=== PATIENT | female | born 1985 | race Caucasian/White ===

== ENCOUNTER 2016-07-06 12:04 | Emergency (ER) | payer MEDICAID | END 2016-07-06 14:10 | disposition left against medical advice (07) | LOC: ER 12:04 | DX: Z53.20 Procedure and treatment not carried out because of patient's decision for unspecified reasons (principal) ==

== ENCOUNTER 2016-07-07 08:51 | Emergency (ER) | payer MEDICAID ==
[2016-07-07] MEDS ORDERED: ONDANSETRON HCL IV 4 MG/2 ML VIAL IVP ONE (09:31)
[2016-07-07] MEDS ORDERED: HYDROMORPHONE HCL 1 MG/ML CPJ IVP ONE (09:31)
[2016-07-07 09:58] LABS: BASO % 0.5 % (0-6); EOS % 3.5 % (0-6); GRAN % 49.4 % (47-80); HEMATOCRIT 38.6 % (35.0-47.0); HEMOGLOBIN 13.3 gm/dl (11.6-16.0); LYMPH % 41.2 % (16-45); MEAN CELL VOLUME 92.6 fl (81-97); MEAN CORPUSCULAR HEMOGLOBIN 31.9 pg (27-33); MEAN CORPUSCULAR HGB CONC 34.5 g/dl (32-36); MEAN PLATELET VOLUME 9.7 fl (7.4-10.4); MONO % 5.4 % (0-9); PLATELET COUNT 231 K/uL (130-400); RED BLOOD COUNT 4.17 M/uL (3.80-5.40); RED CELL DISTRIBUTION WIDTH 13.3 % (11.5-14.5); WHITE BLOOD COUNT W/O DIFF 7.9 K/uL (4.2-12.2)
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
[2016-07-07 10:05] LABS: ALB/GLOB RATIO 1.4 (1.1-1.8); ALBUMIN 3.9 gm/dL (3.5-5.0); ALKALINE PHOSPHATASE 42 U/L (38-126); ALT/SGPT 38 U/L (9-52); AMYLASE 64 U/L (30-110); ANION GAP 7.2 (7-16); AST/SGOT 19 U/L (14-36); BILIRUBIN,TOTAL 0.29 mg/dL (0.2-1.3); BLOOD UREA NITROGEN 7 mg/dL (7-17); CARBON DIOXIDE 24.8 mmol/L (22-30); CREATININE 0.7 mg/dL (0.52-1.04); EST GLOMERULAR FILTRATION RATE > 60 ml/min; GLUCOSE,RANDOM 93 mg/dL (70-110); LIPASE 111 U/L (23-300); TOTAL PROTEIN 6.6 gm/dL (6.3-8.2)
[2016-07-07 11:09] LABS: URINE APPEARANCE CLEAR; URINE BILIRUBIN NEGATIVE (NEGATIVE); URINE BLOOD NEGATIVE (NEGATIVE); URINE COLOR YELLOW; URINE GLUCOSE (UA) NEGATIVE (NEGATIVE); URINE KETONE NEGATIVE (NEGATIVE); URINE LEUKOCYTE ESTERASE NEGATIVE (NEGATIVE); URINE NITRITE NEGATIVE (NEGATIVE); URINE PROTEIN NEGATIVE (NEGATIVE); URINE UROBILINOGEN 0.2 E.U./dL (0.20 - 1.00)
[2016-07-07 11:11] LABS: HCG,QUALITATIVE URINE NEGATIVE (NEGATIVE)
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
== END 2016-07-07 12:24 | disposition home or self-care (01) ==
LOC: ER 08:51
DX: S16.1XXA Strain of muscle, fascia and tendon at neck level, initial encounter (principal); S20.219A Contusion of unspecified front wall of thorax, initial encounter; R51 Headache; M54.5 Low back pain; R10.13 Epigastric pain; R06.00 Dyspnea, unspecified; V49.40XA Driver injured in collision with unspecified motor vehicles in traffic accident, initial encounter
CPT/HCPCS: 82150; 83690; 84484; 80053; 81003; 81025; 85027; 72125; 71260; 70450; 74177; Q9967; J2405; J1170; 96374; 96375; 99284

== ENCOUNTER 2017-02-21 15:21 | Emergency (ER) | payer MEDICAID ==
[2017-02-21] MEDS ORDERED: HYDROMORPHONE HCL 1MG/ML **SYRINGE IVP ONE (16:03)
[2017-02-21] MEDS ORDERED: ONDANSETRON HCL IV 4 MG/2 ML VIAL IVP ONE (16:10)
[2017-02-21 16:56] LABS: BASO % 0.1 % (0-6); EOS % 2.1 % (0-6); GRAN % 63.2 % (47-80); HEMATOCRIT 40.2 % (35.0-47.0); HEMOGLOBIN 14.6 gm/dl (11.6-16.0); LYMPH % 29.2 % (16-45); MEAN CELL VOLUME 92.2 fl (81-97); MEAN CORPUSCULAR HEMOGLOBIN 33.5 pg (27-33); MEAN CORPUSCULAR HGB CONC 36.3 g/dl (32-36); MEAN PLATELET VOLUME 9.8 fl (7.4-10.4); MONO % 5.4 % (0-9); PLATELET COUNT 225 K/uL (130-400); RED BLOOD COUNT 4.36 M/uL (3.80-5.40); RED CELL DISTRIBUTION WIDTH 12.6 % (11.5-14.5); WHITE BLOOD COUNT W/O DIFF 9.7 K/uL (4.2-12.2)
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
[2017-02-21] MEDS ORDERED: CLINDAMYCIN 600MG/4ML VIAL 600 MG in 0.9 % SODIUM CHLORIDE 100ML 100 ML IV ONE (17:41)
[2017-02-21] MEDS ORDERED: KETOROLAC 30 MG/ML VIAL IVP ONE (17:52)
--- NOTE | 2017-02-23 10:48 | CT SCAN REPORT ---
EXAM: CT OF THE PELVIS WITHOUT CONTRAST HISTORY: VAGINAL CYST. TECHNIQUE: Sequential axial images were obtained from the iliac crest through the ischiorectal fossa without intravenous contrast administration. Sagittal and coronal reformatted images were performed. FINDINGS: There is a 2.3 x 2.1 cm cystic lesion in the left vaginal wall. This is likely client care representative of Bartholin gland cyst. The uterus and adnexal structures appear normal. The bowel appears normal. The osseous structures appear normal. The urinary bladder appears normal. IMPRESSION: 2.3 X 2.1 CM CYSTIC LESION IN THE LEFT SIDE OF THE VAGINAL WALL. 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 JOB NUMBER: [id number] [facility]
== END 2017-02-21 18:37 | disposition home or self-care (01) ==
LOC: ER 15:21
DX: N75.0 Cyst of Bartholin's gland (principal)
CPT/HCPCS: 99284 ×2; 96374; 96375; 85025; 72192; J1885; J2405; J1170

== ENCOUNTER 2018-01-31 11:08 | Emergency (ER) | payer MEDICAID ==
[2018-01-31] MEDS: 0.9 % SODIUM CHLORIDE 1,000 ML BAG IV ONE (11:55)
[2018-01-31] MEDS: ONDANSETRON HCL IV 4 MG/2 ML VIAL IV ONE (11:55)
--- NOTE | 2018-01-31 11:56 | Emergency Department Record ---
History of Present Illness - General Chief complaint: Nausea, Vomiting, Diarrhea Stated complaint: VOMITING Time Seen by Provider: 01/31/18 11:23 Source: Patient, RN notes reviewed Mode of Arrival: Ambulatory - History of Present Illness Initial comments: patient states 5 days of nausea and vomiting and today she made herself throw up and she ate crackers and it didn't help. She was feeling better 3 days ago and she worked yesterday and she had diarrhea and she is cramping because she started her menses. MD complaint: Diarrhea, Nausea, Vomiting Onset/Timin -: Days(s) Description of Vomiting: Bilious Description of Diarrhea: Green Radiation: None Severity: Mild Quality: Aching Improves with: None Worsens with: None Associated Symptoms: Loss of appetite, Nausea/vomiting - Related Data Previous Rx's Medication Instructions Recorded Acyclovir [Zovirax] 1 apply TP 5XD #15 gm 01/31/18 Allergies Allergy/AdvReac Type Severity Reaction Status Date / Time No Known Drug Allergies Allergy Verified 01/31/18 11:39 Travel Screening - Travel/Exposure Within Last 30 Days Have you traveled within the last 30 days?: No - Travel/Exposure Within Last Year Have you traveled outside the [place] in the last year?: No - Additonal Travel Details Have you been exposed to anyone with a communicable illness?: No - Travel Symptoms Symptom Screening: None Review of Systems Reviewed: No additional complaints except as noted below Constitutional: Reports: As per HPI. Denies: Chills, Fever, Malaise, Night sweats, Weakness, Weight change Eyes: Reports: As per HPI. Denies: Eye discharge, Eye pain, Photophobia, Vision change ENT: Reports: As per HPI. Denies: Congestion, Dental pain, Ear pain, Epistaxis , Hearing loss, Throat pain Respiratory: Reports: As per HPI. Denies: Cough, Dyspnea, Hemoptysis, Stridor, Wheezes Cardiovascular: Reports: As per HPI. Denies: Arrhythmia, Chest pain, Dyspnea on exertion, Edema, Murmurs, Orthopnea, Palpitations, Paroxysmal nocturnal dyspnea, Rheumatic Fever, Syncope Endocrine: Reports: As per HPI. Denies: Fatigue, Heat or cold intolerance, Polydipsia, Polyuria Gastrointestinal: Reports: As per HPI. Denies: Abdominal pain, Constipation, Diarrhea, Hematemesis, Hematochezia, Melena, Nausea, Vomiting Genitourinary: Reports: As per HPI. Denies: Abnormal menses, Discharge, Dyspareunia, Dysuria, Frequency, Hematuria, Incontinence, Retention, Urgency Musculoskeletal: Reports: As per HPI. Denies: Arthralgia, Back pain, Gout, Joint swelling, Myalgia, Neck pain Skin: Reports: As per HPI. Denies: Bruising, Change in color, Change in hair/ nails, Lesions, Pruritus, Rash Neurological: Reports: As per HPI. Denies: Abnormal gait, Confusion, Headache, Numbness, Paresthesias, Seizure, Tingling, Tremors, Vertigo, Weakness Psychiatric: Reports: As per HPI. Denies: Anxiety, Auditory hallucinations, Depression, Homicidal thoughts, Suicidal thoughts, Visual hallucinations Hematological/Lymphatic: Reports: As per HPI. Denies: Anemia, Blood Clots, Easy bleeding, Easy bruising, Swollen glands Past Medical History - SOCIAL HISTORY Smoking Status: Current every day smoker Alcohol Use: None Drug Use: Heavy Drug Use Detail:: Marijuana - RESPIRATORY Hx Respiratory Disorders: Yes Hx Asthma: Yes - CARDIOVASCULAR Hx Cardio Disorders: No - NEURO Hx Neuro Disorders: Yes Hx Headaches: Yes Comment:: brain bleed 2009 - GI Hx GI Disorders: No - Hx Genitourinary Disorders: No - ENDOCRINE Hx Endocrine Disorders: No Hx Diabetes: No Hx Thyroid Disease: No - MUSCULOSKELETAL Hx Musculoskeletal Disorders: Yes Hx Back Injury: Yes - PSYCH Hx Psych Problems: Yes Hx Anxiety: Yes Hx Depression: Yes Hx Suicide Attempt: Yes - HEMATOLOGY/ONCOLOGY Hx Hematology/Oncology Disorders: No Family Medical History Any Significant Family History?: No Hx Alcohol Use: Grandparents Hx Heart Disease: Grandparents Hx HTN: Grandparents Hx Stroke: Grandparents Physical Exam - General General Appearance: Alert, Oriented x3, Cooperative, No acute distress - Head Head exam: Normal inspection - Eye Eye exam: Normal appearance, PERRL Pupils: Normal accommodation - ENT ENT exam: Normal exam, Mucous membranes moist, Normal external ear exam, Normal orophraynx, TM's normal bilaterally Ear exam: Normal external inspection. negative: External canal tenderness Nasal Exam: Normal inspection. negative: Discharge, Sinus tenderness Mouth exam: Normal external inspection, Tongue normal Teeth exam: Normal inspection. negative: Dental caries Throat exam: Normal inspection. negative: Tonsillar erythema, Tonsillar exudate - Neck Neck exam: Normal inspection, Full ROM. negative: Tenderness - Respiratory Respiratory exam: Normal lung sounds bilaterally. negative: Respiratory distress - Cardiovascular Cardiovascular Exam: Regular rate, Normal rhythm, Normal heart sounds - GI/Abdominal GI/Abdominal exam: Soft, Normal bowel sounds. negative: Tenderness - Rectal Rectal exam: Deferred - exam: Deferred - Extremities Extremities exam: Normal inspection, Full ROM, Normal capillary refill. negative: Tenderness - Back Back exam: Reports: Normal inspection, Full ROM. Denies: Muscle spasm, Rash noted, Tenderness - Neurological Neurological exam: Alert, Normal gait, Oriented X3, Reflexes normal - Psychiatric Psychiatric exam: Normal affect, Normal mood - Skin Skin exam: Dry, Intact, Normal color, Warm Course Vital Signs 01/31/18 11:27 Temperature 98.3 F Pulse Rate 94 H Respiratory 16 Rate Blood Pressure 131/79 Pulse Ox 98 Medical Decision Making - Data Complexity MDM Data: Labs Ordered and/or Reviewed - Lab Data Result diagrams: 01/31/18 11:50 01/31/18 11:50 Disposition Clinical Impression: Gastroenteritis, Cracked lips Disposition: Home, Self-Care Condition: (1) Good Instructions: Gastroenteritis (ED), Acute Nausea and Vomiting (ED) Additional Instructions: follow up with family in one week clear liquids for 12 hours than a bland diet Prescriptions: Acyclovir [Zovirax] 1 apply TP 5XD #15 gm Forms: Patient Portal Access Time of Disposition: 12:16 Quality - Quality Measures Quality Measures: N/A - Headache: Neuroimaging ICD10 Codes Entered: No Neurological Exam: Patient had a normal neurological exam. [G9535] Headache: Use of Neuroimaging: < CTA, CT, MRA or MRI was NOT ordered > [G9534] - Blood Pressure Screening Does Patient Have Any of the Following: No Blood Pressure Classification: Normal BP Reading Systolic Measurement: 105 Diastolic Measurement: 56 Screening for High Blood Pressure: < Normal BP, F/U Not Required > [G8783]
[2018-01-31 12:07] LABS: BASO % 0.5 % (0-6); EOS % 2.2 % (0-6); GRAN % 53.6 % (47-80); HEMOGLOBIN 15.3 gm/dl (11.6-16.0); LYMPH % 38.8 % (16-45); MEAN CELL VOLUME 93.4 fl (81-97); MEAN CORPUSCULAR HEMOGLOBIN 32.5 pg (27-33); MEAN CORPUSCULAR HGB CONC 34.8 g/dl (32-36); MEAN PLATELET VOLUME 9.8 fl (7.4-10.4); MONO % 4.9 % (0-9); PLATELET COUNT 241 K/uL (130-400); RED BLOOD COUNT 4.71 M/uL (3.80-5.40); WHITE BLOOD COUNT W/O DIFF 5.9 K/uL (4.2-12.2)
[2018-01-31 12:21] LABS: BLOOD UREA NITROGEN 9 mg/dL (6-20); CREATININE 0.7 mg/dL (0.5-0.9); EST GLOMERULAR FILTRATION RATE > 60 mL/min
[2018-01-31 12:22] LABS: TOTAL PROTEIN 7.4 g/dL (6.6-8.7)
[2018-01-31 12:24] LABS: GLUCOSE,RANDOM 90 mg/dL (74-109)
[2018-01-31 12:26] LABS: ALT/SGPT 17 U/L (<33); AST/SGOT 18 U/L (10.0-35.0)
[2018-01-31 12:27] LABS: ALBUMIN 4.6 g/dL (4.0-5.0); ALKALINE PHOSPHATASE 41 U/L (35-104); LIPASE 39 U/L (13-60)
[2018-01-31 12:34] LABS: BILIRUBIN,DIRECT < 0.2 mg/dL (0-0.3)
== END 2018-01-31 12:45 | disposition home or self-care (01) ==
LOC: ER 11:08
DX: K52.9 Noninfective gastroenteritis and colitis, unspecified (principal); R11.2 Nausea with vomiting, unspecified; R19.7 Diarrhea, unspecified; F17.210 Nicotine dependence, cigarettes, uncomplicated
CPT/HCPCS: 99284 ×2; 96374; 96361; 83690; 85025; 80076; 80048; J2405; J7030

== ENCOUNTER 2018-04-11 18:50 | Emergency (ER) | payer SELFPAY ==
[2018-04-11] MEDS ORDERED: KETOROLAC 30 MG/ML VIAL IVP ONE (19:03)
--- NOTE | 2018-04-11 19:09 | Emergency Department Record ---
History of Present Illness - General Chief complaint: Abscess Stated complaint: CVYST ON VAGINA Time Seen by Provider: 04/11/18 18:55 Source: Patient Mode of Arrival: Ambulatory Limitations: No limitations - History of Present Illness Initial comments: 32 yo female presents to ED for evaluation of left posterior labial pain symptoms for the past several days. Patient reports a history of numerous labial abscesses previously (18 I & Ds) and reports previous permanent drain placed in the posterior left vulva to facilitate drainage by Dr. Garcia. Patient reports that she has not had any drainage from the area, reports increased pain/swelling. Patient denies fevers, chills, nausea, or vomiting symptoms. MD complaint: Abscess/boil Onset/Timin -: Days(s) Year of Tetanus Vaccination: 95 Location: Genitals Severity: Moderate Severity scale (1-10): 7 Quality: Sharp Consistency: Constant Improves with: Immobilization Worsens with: Palpation, Movement Context: None Associated symptoms: Denies other symptoms Treatments Prior to Arrival: Attempted to drain pus at home - Related Data Previous Rx's Medication Instructions Recorded Clindamycin HCl 300 mg PO QID #28 capsule 04/11/18 Allergies Allergy/AdvReac Type Severity Reaction Status Date / Time No Known Drug Allergies Allergy Verified 01/31/18 11:39 Travel Screening - Travel/Exposure Within Last 30 Days Have you traveled within the last 30 days?: No Review of Systems Constitutional: Denies: Chills, Fever, Malaise, Night sweats Eyes: Denies: Eye discharge, Eye pain ENT: Denies: Congestion, Ear pain, Epistaxis Respiratory: Denies: Cough, Dyspnea Cardiovascular: Denies: Chest pain, Dyspnea on exertion Endocrine: Denies: Fatigue, Heat or cold intolerance Gastrointestinal: Denies: Abdominal pain, Nausea, Vomiting Genitourinary: Reports: Other (Labial pain/swelling). Denies: Incontinence, Retention Musculoskeletal: Denies: Arthralgia, Back pain Skin: Denies: Bruising, Change in color Neurological: Denies: Abnormal gait, Confusion, Headache Psychiatric: Denies: Anxiety Hematological/Lymphatic: Denies: Anemia, Blood Clots Past Medical History - SOCIAL HISTORY Smoking Status: Current every day smoker - RESPIRATORY Hx Respiratory Disorders: Yes Hx Asthma: Yes - CARDIOVASCULAR Hx Cardio Disorders: No - NEURO Hx Neuro Disorders: Yes Hx Headaches: Yes Comment:: brain bleed 2009 - GI Hx GI Disorders: No - Hx Genitourinary Disorders: No - ENDOCRINE Hx Endocrine Disorders: No Hx Diabetes: No Hx Thyroid Disease: No - MUSCULOSKELETAL Hx Musculoskeletal Disorders: Yes Hx Back Injury: Yes - PSYCH Hx Psych Problems: Yes Hx Anxiety: Yes Hx Depression: Yes Hx Suicide Attempt: Yes - HEMATOLOGY/ONCOLOGY Hx Hematology/Oncology Disorders: No Family Medical History Any Significant Family History?: Yes Hx Alcohol Use: Grandparents Hx Heart Disease: Grandparents Hx HTN: Grandparents Hx Stroke: Grandparents Physical Exam - General General Appearance: Alert, Oriented x3, Cooperative, Mild distress Limitations: No limitations - Head Head exam: Atraumatic, Normocephalic, Normal inspection Head exam detail: negative: Abrasion, Contusion, Moore's sign, General tenderness, Hematoma, Laceration - Eye Eye exam: Normal appearance. negative: Conjunctival injection, Periorbital swelling, Periorbital tenderness, Scleral icterus - ENT Ear exam: negative: Auricular hematoma, Auricular trauma Nasal Exam: negative: Active bleeding, Discharge, Dried blood, Foreign body Mouth exam: negative: Drooling, Laceration, Muffled voice, Tongue elevation - Neck Neck exam: Normal inspection. negative: Meningismus, Tenderness - Respiratory Respiratory exam: Normal lung sounds bilaterally. negative: Respiratory distress, Rhonchi, Stridor, Wheezes - Cardiovascular Cardiovascular Exam: Regular rate, Normal rhythm, Normal heart sounds - GI/Abdominal GI/Abdominal exam: Soft. negative: Rebound, Rigid, Tenderness - Rectal Rectal exam: Deferred - exam: Other (No induration or fluctuance is present on examination, previous drainage procedure appears patent on examination. No erythema or drainage is present on examination.) - Extremities Extremities exam: Normal inspection. negative: Pedal edema, Tenderness - Back Back exam: Denies: CVA tenderness (R), CVA tenderness (L) - Neurological Neurological exam: Alert, Normal gait, Oriented X3 - Psychiatric Psychiatric exam: Normal affect, Normal mood - Skin Skin exam: Normal color. negative: Abrasion Type of lesion: negative: abrasion Course Vital Signs 04/11/18 18:58 Temperature 97.7 F Pulse Rate 84 Respiratory 20 Rate Blood Pressure 129/71 Pulse Ox 96 - Reevaluation(s) Reevaluation #1: 04/11/18 20:09 Labs reviewed and are grossly unremarkable for an acute process. Patient was updated on all results thus far just prior to leaving for CT imaging. Reevaluation #2: 04/11/18 21:17 CT Abdomen and Pelvis: 11 mm cyst deep within the left perineum/left vagina Patient was updated on her CT imaging result. Given the depth of the patient's cyst vs. abscess, I & D is not possible in the ED. Patient was instructed to call Dr. Garcia's office tomorrow morning for evaluation as the patient had her drainage catheter placed by him previously. Referral for Gynecologic evaluation was also placed. Will initiate Clindamycin as directed as well. Patient appears stable for discharge at this time. Medical Decision Making - Lab Data Result diagrams: 04/11/18 19:10 04/11/18 19:10 Disposition Disposition: Discharge Clinical Impression: Bartholin cyst Disposition: Home, Self-Care Condition: (2) Stable Instructions: Bartholin Cyst (ED) Additional Instructions: Return to ED if your symptoms worsen or if you have any concerns. Clindamycin as directed. Call Dr. Garcia's office tomorrow morning for a follow-up appointment. Prescriptions: Clindamycin HCl 300 mg PO QID #28 capsule Referrals: ANNIE BOWENS D.O. [DOCTOR OF OSTEOPATH] - Patrick Garcia [DOCTOR OF OSTEOPATH] - [facility] [Provider Group] Forms: Patient Portal Access Time of Disposition: 21:16 Quality - Quality Measures Quality Measures: N/A - Blood Pressure Screening Does Patient Have Any of the Following: No Blood Pressure Classification: Pre-Hypertensive BP Reading Systolic Measurement: 120 Diastolic Measurement: 73 Screening for High Blood Pressure: < Pre-Hypertensive BP, F/U Documented > [ G8950] Pre-Hypertensive Follow-up Interventions: Referral to alternative/primary care provider.
[2018-04-11] MEDS ORDERED: 0.9 % SODIUM CHLORIDE 1000ML 1,000 ML IV SCH (19:15)
[2018-04-11 19:18] LABS: BASO % 0.4 % (0-6); EOS % 2.3 % (0-6); GRAN % 49.7 % (47-80); HEMATOCRIT 42.7 % (35.0-47.0); HEMOGLOBIN 14.8 gm/dl (11.6-16.0); LYMPH % 43.4 % (16-45); MEAN CELL VOLUME 93.6 fl (81-97); MEAN CORPUSCULAR HEMOGLOBIN 32.5 pg (27-33); MEAN CORPUSCULAR HGB CONC 34.7 g/dl (32-36); MEAN PLATELET VOLUME 9.5 fl (7.4-10.4); MONO % 4.2 % (0-9); PLATELET COUNT 247 K/uL (130-400); RED BLOOD COUNT 4.56 M/uL (3.80-5.40); RED CELL DISTRIBUTION WIDTH 12.8 % (11.5-14.5); WHITE BLOOD COUNT W/O DIFF 10.6 K/uL (4.2-12.2)
[2018-04-11 19:30] LABS: BLOOD UREA NITROGEN 8 mg/dL (6-20); CREATININE 0.9 mg/dL (0.5-0.9); EST GLOMERULAR FILTRATION RATE > 60 mL/min
[2018-04-11 19:31] LABS: TOTAL PROTEIN 7.2 g/dL (6.6-8.7)
[2018-04-11 19:33] LABS: GLUCOSE,RANDOM 101 mg/dL (74-109)
[2018-04-11 19:35] LABS: ALB/GLOB RATIO 1.8 (1.1-1.8); ALBUMIN 4.6 g/dL (4.0-5.0); ALKALINE PHOSPHATASE 46 U/L (35-104); ALT/SGPT 23 U/L (<33); AST/SGOT 18 U/L (10.0-35.0)
[2018-04-11 19:36] LABS: C-REACTIVE PROTEIN 0.06 mg/dL (<0.5)
[2018-04-11 20:14] LABS: ERYTHROCYTE SEDIMENTATION RATE 4 mm/hr (0-20)
[2018-04-11] MEDS ORDERED: CLINDAMYCIN 150 MG CAP PO ONE (21:16)
--- NOTE | 2018-04-14 15:12 | CT SCAN REPORT ---
EXAM: CT OF THE PELVIS WITH IV CONTRAST HISTORY: CYST IN THE LOWER LEFT VAGINAL AREA. TECHNIQUE: Helical CT scan of the pelvis was obtained after the administration of 100 ml intravenous Omnipaque 300. Comparison: CT pelvis 02/21/17, 2.3 cm cystic lesion in the left vaginal wall. FINDINGS: In the lower left vagina near the perineum is a ring enhancing structure that measures approximately 11 x 9 mm. This is in the similar location of the previously seen vaginal cyst. No intrapelvic lesions. This is not in close proximity of the rectum. Bowel shows no abnormality. The uterus and ovaries have normal size. No ascites or fluid collections. The bone structures are unremarkable. IMPRESSION: RECURRENT OR CHRONIC LEFT VAGINAL CYST, CONSISTENT WITH A BARTHOLIN GLAND CYST. JOB NUMBER: [id number] MTDD
== END 2018-04-11 21:35 | disposition home or self-care (01) ==
LOC: ER 18:50
DX: N75.0 Cyst of Bartholin's gland (principal); F17.210 Nicotine dependence, cigarettes, uncomplicated
CPT/HCPCS: 99284 ×2; 96374; 85025; 85651; 86140; 80053; 81025; 72193; Q9967; J1885; J7030

== ENCOUNTER 2018-05-14 13:31 | Emergency (ER) | payer SELFPAY ==
--- NOTE | 2018-05-14 13:52 | Emergency Department Record ---
History of Present Illness - General Chief complaint: Eye Problem Stated complaint: PINK EYE Time Seen by Provider: 05/14/18 13:45 Source: Patient, RN notes reviewed Mode of Arrival: Ambulatory - History of Present Illness Initial comments: right eye redness and she has congestion and cough,mattering of yellow drainge and eyes stuck shut and she smokes cigs Onset/Timin -: Days(s) Onset Description: Gradual Location: Right eye Place: Home If Injury: None Severity: Mild Severity scale (1-10): 4 If Pain, Quality: Aching - Related Data Visual acuity (L) = 20/: 40 Visual acuity (R) = 20/: 30 Year of Tetanus Vaccination: 95 Patient Tetanus UTD (within 5 yrs): No Previous Rx's Medication Instructions Recorded Sulfacetamide Sodium [Bleph-10] 1 - 2 drop AFFEYE QID #5 ml 05/14/18 Allergies Allergy/AdvReac Type Severity Reaction Status Date / Time No Known Drug Allergies Allergy Verified 05/14/18 13:40 Travel Screening - Travel/Exposure Within Last 30 Days Have you traveled within the last 30 days?: No - Travel/Exposure Within Last Year Have you traveled outside the [place] in the last year?: No - Additonal Travel Details Have you been exposed to anyone with a communicable illness?: No - Travel Symptoms Symptom Screening: None Review of Systems Reviewed: No additional complaints except as noted below Constitutional: Reports: As per HPI. Denies: Chills, Fever, Malaise, Night sweats, Weakness, Weight change Eyes: Reports: As per HPI, Eye discharge. Denies: Eye pain, Photophobia, Vision change ENT: Reports: As per HPI, Congestion. Denies: Dental pain, Ear pain, Epistaxis , Hearing loss, Throat pain Respiratory: Reports: As per HPI, Cough. Denies: Dyspnea, Hemoptysis, Stridor, Wheezes Cardiovascular: Reports: As per HPI. Denies: Arrhythmia, Chest pain, Dyspnea on exertion, Edema, Murmurs, Orthopnea, Palpitations, Paroxysmal nocturnal dyspnea, Rheumatic Fever, Syncope Endocrine: Reports: As per HPI. Denies: Fatigue, Heat or cold intolerance, Polydipsia, Polyuria Gastrointestinal: Reports: As per HPI. Denies: Abdominal pain, Constipation, Diarrhea, Hematemesis, Hematochezia, Melena, Nausea, Vomiting Genitourinary: Reports: As per HPI. Denies: Abnormal menses, Discharge, Dyspareunia, Dysuria, Frequency, Hematuria, Incontinence, Retention, Urgency Musculoskeletal: Reports: As per HPI. Denies: Arthralgia, Back pain, Gout, Joint swelling, Myalgia, Neck pain Skin: Reports: As per HPI. Denies: Bruising, Change in color, Change in hair/ nails, Lesions, Pruritus, Rash Neurological: Reports: As per HPI. Denies: Abnormal gait, Confusion, Headache, Numbness, Paresthesias, Seizure, Tingling, Tremors, Vertigo, Weakness Psychiatric: Reports: As per HPI. Denies: Anxiety, Auditory hallucinations, Depression, Homicidal thoughts, Suicidal thoughts, Visual hallucinations Hematological/Lymphatic: Reports: As per HPI. Denies: Anemia, Blood Clots, Easy bleeding, Easy bruising, Swollen glands Past Medical History - SOCIAL HISTORY Smoking Status: Current every day smoker Alcohol Use: None Drug Use: None - RESPIRATORY Hx Respiratory Disorders: Yes Hx Asthma: Yes - CARDIOVASCULAR Hx Cardio Disorders: No - NEURO Hx Neuro Disorders: Yes Hx Headaches: Yes Comment:: brain bleed 2009 - GI Hx GI Disorders: No - Hx Genitourinary Disorders: No - ENDOCRINE Hx Endocrine Disorders: No Hx Diabetes: No Hx Thyroid Disease: No - MUSCULOSKELETAL Hx Musculoskeletal Disorders: Yes Hx Back Injury: Yes - PSYCH Hx Psych Problems: Yes Hx Anxiety: Yes Hx Depression: Yes Hx Suicide Attempt: Yes - HEMATOLOGY/ONCOLOGY Hx Hematology/Oncology Disorders: No Family Medical History Any Significant Family History?: Yes Hx Alcohol Use: Grandparents Hx Heart Disease: Grandparents Hx HTN: Grandparents Hx Stroke: Grandparents Physical Exam - General General Appearance: Alert, Oriented x3, Cooperative, No acute distress - Head Head exam: Normal inspection - Eye Eye exam: PERRL, Conjunctival injection (right eye), Other (drainage) Pupils: Normal accommodation - ENT ENT exam: Normal exam, Mucous membranes moist, Normal external ear exam, Normal orophraynx, TM's normal bilaterally Ear exam: Normal external inspection. negative: External canal tenderness Nasal Exam: Normal inspection. negative: Discharge, Sinus tenderness Mouth exam: Normal external inspection, Tongue normal Teeth exam: Normal inspection. negative: Dental caries Throat exam: Normal inspection. negative: Tonsillar erythema, Tonsillar exudate - Neck Neck exam: Normal inspection, Full ROM. negative: Tenderness - Respiratory Respiratory exam: Normal lung sounds bilaterally. negative: Respiratory distress - Cardiovascular Cardiovascular Exam: Regular rate, Normal rhythm, Normal heart sounds - GI/Abdominal GI/Abdominal exam: Soft, Normal bowel sounds. negative: Tenderness - Rectal Rectal exam: Deferred - exam: Deferred - Extremities Extremities exam: Normal inspection, Full ROM, Normal capillary refill. negative: Tenderness - Back Back exam: Reports: Normal inspection, Full ROM. Denies: Muscle spasm, Rash noted, Tenderness - Neurological Neurological exam: Alert, Normal gait, Oriented X3, Reflexes normal - Psychiatric Psychiatric exam: Normal affect, Normal mood - Skin Skin exam: Dry, Intact, Normal color, Warm Course Vital Signs 05/14/18 13:34 Temperature 98.2 F Pulse Rate 74 Respiratory 20 Rate Blood Pressure 116/92 Pulse Ox 97 Disposition Disposition: Discharge Clinical Impression: Conjunctivitis Qualifiers: Conjunctivitis type: acute Acute conjunctivitis type: bacterial Laterality: right Qualified Code(s): H10.31 - Unspecified acute conjunctivitis, right eye Disposition: Home, Self-Care Return To Work/School Note Provided: Yes Condition: (1) Good Instructions: Conjunctivitis (ED) Additional Instructions: follow up with family Prescriptions: Sulfacetamide Sodium [Bleph-10] 1 - 2 drop AFFEYE QID #5 ml Time of Disposition: 13:54 Quality - Quality Measures Quality Measures: N/A - Headache: Neuroimaging ICD10 Codes Entered: No Neurological Exam: Patient had a normal neurological exam. [G9535] Headache: Use of Neuroimaging: < CTA, CT, MRA or MRI was NOT ordered > [G9534] - Blood Pressure Screening Does Patient Have Any of the Following: No Blood Pressure Classification: Hypertensive Reading Systolic Measurement: 116 Diastolic Measurement: 92 Screening for High Blood Pressure: < Pre-Hypertensive BP, F/U Documented > [ G8950] Pre-Hypertensive Follow-up Interventions: Referral to alternative/primary care provider.
== END 2018-05-14 14:22 | disposition home or self-care (01) ==
LOC: ER 13:31
DX: H10.31 Unspecified acute conjunctivitis, right eye (principal); F17.210 Nicotine dependence, cigarettes, uncomplicated
CPT/HCPCS: 99282

== ENCOUNTER 2018-12-17 11:54 | Emergency (ER) | payer MEDICAID ==
[2018-12-17] MEDS ORDERED: ACETAMINOPHEN 325 MG TAB PO ONE (12:16)
--- NOTE | 2018-12-17 12:19 | Emergency Department Record ---
History of Present Illness - General Chief Complaint: Ankle/Foot Injury Stated Complaint: R FOOT MID 3 TOES HURT Time Seen by Provider: 12/17/18 12:14 Source: Patient Mode of Arrival: Ambulatory Limitations: No limitations - History of Present Illness Initial Comments: The patient is here due to R foot pain. She accidentally kicked her bed post about 2 hours ago. She is having pain to the 2nd - 4th toes mainly. She is able to walk with mild limping. MD Complaint: Foot injury Onset/Timin -: Hour(s) Type of Injury: Blunt Place: Home Severity: Moderate Severity scale (1-10): >10 - Related Data Allergies Allergy/AdvReac Type Severity Reaction Status Date / Time No Known Drug Allergies Allergy Verified 12/17/18 12:06 Travel Screening - Travel/Exposure Within Last 30 Days Have you traveled within the last 30 days?: No - Travel Symptoms Symptom Screening: None Review of Systems Constitutional: Denies: Chills, Fever Eyes: Denies: Eye discharge ENT: Denies: Congestion Respiratory: Denies: Cough, Dyspnea Past Medical History - SOCIAL HISTORY Smoking Status: Current every day smoker Alcohol Use: Rare Drug Use Detail:: Marijuana - RESPIRATORY Hx Respiratory Disorders: Yes Hx Asthma: Yes - CARDIOVASCULAR Hx Cardio Disorders: No - NEURO Hx Neuro Disorders: Yes Hx Headaches: Yes Comment:: brain bleed 2009 - GI Hx GI Disorders: No - Hx Genitourinary Disorders: No - ENDOCRINE Hx Endocrine Disorders: No Hx Diabetes: No Hx Thyroid Disease: No - MUSCULOSKELETAL Hx Musculoskeletal Disorders: Yes Hx Back Injury: Yes - PSYCH Hx Psych Problems: Yes Hx Anxiety: Yes Hx Depression: Yes Hx Suicide Attempt: Yes - HEMATOLOGY/ONCOLOGY Hx Hematology/Oncology Disorders: No Family Medical History Any Significant Family History?: Yes Hx Alcohol Use: Grandparents Hx Heart Disease: Grandparents Hx HTN: Grandparents Hx Stroke: Grandparents Physical Exam - General General Appearance: Alert, Oriented x3, Cooperative, No acute distress - Head Head exam: Atraumatic, Normocephalic, Normal inspection - Eye Eye exam: Normal appearance, PERRL - Extremities Extremities exam: Normal inspection (There is no swelling, bruising, or any signs of trauma. ), Full ROM, Normal capillary refill, Tenderness (The 2nd - 4th toes are very tender to light pressure. There is no deformity.), Other (The R foog is NVI.). negative: Calf tenderness, Joint swelling, Pedal edema Image of Feet: 1 - Area of pain and tenderness. Course Vital Signs 12/17/18 12:00 Temperature 98.8 F Pulse Rate 93 H Respiratory 16 Rate Blood Pressure 130/101 Pulse Ox 99 - Reevaluation(s) Reevaluation #1: I did discuss the neg xrays with the patient and the need for F/U. 12/17/18 12:39 Medical Decision Making - Data Complexity MDM Data: X-Ray Ordered and/or Reviewed - Radiology Data Radiology results: Report reviewed (R foot: Neg for fx or dislocation.) Disposition Disposition: Discharge Clinical Impression: Foot contusion Qualifiers: Encounter type: initial encounter Laterality: right Qualified Code(s): S90.31XA - Contusion of right foot, initial encounter Disposition: Home, Self-Care Condition: (2) Stable Instructions: Foot Contusion (ED) Additional Instructions: Please use the hard soled shoe for 7 days and ice and elevate the foot today. Continue your home pain medicines and please see your doctor if not better in 5 days. Forms: Patient Portal Access Time of Disposition: 12:40 Quality - Quality Measures Quality Measures: Headache (All Ages) - Headache: Neuroimaging Quality Measure: Measure #419: Overuse of Neuroimaging ICD10 Codes Entered: Yes View Detail: Yes Neurological Exam: Patient had a normal neurological exam. [G9535] Headache: Use of Neuroimaging: < CTA, CT, MRA or MRI was NOT ordered > [G9534] - Blood Pressure Screening View Details: Yes Does Patient Have Any of the Following: No Blood Pressure Classification: Hypertensive Reading Systolic Measurement: 130 Diastolic Measurement: 101 Screening for High Blood Pressure: < First Hypertensive BP, F/U Documented > [G8950] First Hypertensive Follow-up Interventions: Referral to alternative/primary care provider.
--- NOTE | 2018-12-19 22:17 | RADIOLOGY REPORT ---
EXAM: FOOT, RIGHT 3 VIEWS HISTORY: PAIN AT THE SECOND THROUGH FOURTH TOES. STATUS POST INJURY. TECHNIQUE: Three views of the right foot were obtained. COMPARISON: None. FINDINGS: The bones and joints are normal in appearance. There is no visible acute fracture or dislocation. There is no radiopaque foreign body. IMPRESSION: NO FRACTURE IDENTIFIED. JOB NUMBER: [id number] MTDD
== END 2018-12-17 12:52 | disposition home or self-care (01) ==
LOC: ER 11:54
DX: S90.31XA Contusion of right foot, initial encounter (principal); W22.09XA Striking against other stationary object, initial encounter; Y92.003 Bedroom of unspecified non-institutional (private) residence as the place of occurrence of the external cause; F17.210 Nicotine dependence, cigarettes, uncomplicated
CPT/HCPCS: 99283

== ENCOUNTER 2019-03-06 09:06 | Emergency (ER) | payer MEDICAID ==
[2019-03-06 09:50] LABS: BASO % 0.3 % (0-6); EOS % 0.5 % (0-6); GRAN % 57.1 % (47-80); HEMATOCRIT 39.9 % (35.0-47.0); HEMOGLOBIN 13.5 gm/dl (11.6-16.0); LYMPH % 35.9 % (16-45); MEAN CELL VOLUME 86.4 fl (81-97); MEAN CORPUSCULAR HEMOGLOBIN 29.2 pg (27-33); MEAN CORPUSCULAR HGB CONC 33.8 g/dl (32-36); MEAN PLATELET VOLUME 9.7 fl (7.4-10.4); MONO % 6.2 % (0-9); PLATELET COUNT 295 K/uL (130-400); RED BLOOD COUNT 4.62 M/uL (3.80-5.40); RED CELL DISTRIBUTION WIDTH 13.5 % (11.5-14.5); WHITE BLOOD COUNT W/O DIFF 7.5 K/uL (4.2-12.2)
[2019-03-06 10:03] LABS: BLOOD UREA NITROGEN 6 mg/dL (6-20); CREATININE 0.8 mg/dL (0.5-0.9); EST GLOMERULAR FILTRATION RATE > 60 mL/min
[2019-03-06 10:06] LABS: GLUCOSE,RANDOM 96 mg/dL (74-109)
[2019-03-06] MEDS ORDERED: POTASSIUM CHLORIDE 20 MEQ TABLET PO ONE (10:18)
[2019-03-06] MEDS ORDERED: 0.9 % SODIUM CHLORIDE 1,000 ML BAG IV ONE (10:18)
--- NOTE | 2019-03-06 10:27 | Emergency Department Record ---
History of Present Illness - General Chief complaint: Female Urogenital Problem Stated complaint: BAD MENSTRAL PERIOD Time Seen by Provider: 03/06/19 09:25 Source: Patient Mode of Arrival: Ambulatory Limitations: No limitations - History of Present Illness Initial comments: pt is here because she is having an unusually heavy menses and she thinks she mi ght be miscarrying. she went thru 6 extra strength pads in 8 hours. she is having severe cramping. her last menses was 2 wks ago. she is frequently irregular. MD Complaint: Vaginal bleeding Onset/Timin -: Days(s) Radiation: Other Severity scale (1-10): 9 Quality: Aching, Sharp Consistency: Constant Improves with: None Worsens with: Menstrual period Associated Symptoms: Abdominal pain, Vaginal bleeding - Related Data Home Medications Medication Instructions Recorded Confirmed Last Taken No Home Med [NO HOME MEDS] 03/06/19 03/06/19 Unknown Allergies Allergy/AdvReac Type Severity Reaction Status Date / Time No Known Drug Allergies Allergy Unverified 01/04/19 13:18 Travel Screening - Travel/Exposure Within Last 30 Days Have you traveled within the last 30 days?: No Past Medical History - SOCIAL HISTORY Smoking Status: Current every day smoker - RESPIRATORY Hx Respiratory Disorders: Yes Hx Asthma: Yes - CARDIOVASCULAR Hx Cardio Disorders: No - NEURO Hx Neuro Disorders: Yes Hx Headaches: Yes Comment:: brain bleed 2009 - GI Hx GI Disorders: No - Hx Genitourinary Disorders: No - ENDOCRINE Hx Endocrine Disorders: No Hx Diabetes: No Hx Thyroid Disease: No - MUSCULOSKELETAL Hx Musculoskeletal Disorders: Yes Hx Back Injury: Yes - PSYCH Hx Psych Problems: Yes Hx Anxiety: Yes Hx Depression: Yes Hx Suicide Attempt: Yes - HEMATOLOGY/ONCOLOGY Hx Hematology/Oncology Disorders: No Family Medical History Any Significant Family History?: Yes Hx Alcohol Use: Grandparents Hx Heart Disease: Grandparents Hx HTN: Grandparents Hx Stroke: Grandparents Physical Exam - General General Appearance: Alert, Oriented x3, Cooperative, Mild distress - Head Head exam: Normal inspection - Eye Eye exam: Normal appearance, PERRL, EOMI Pupils: Normal accommodation - ENT ENT exam: Normal exam, Mucous membranes moist, Normal external ear exam, Normal orophraynx Ear exam: Normal external inspection. negative: External canal tenderness Nasal Exam: Normal inspection. negative: Discharge, Sinus tenderness Mouth exam: Normal external inspection, Tongue normal Teeth exam: Normal inspection. negative: Dental caries Throat exam: Normal inspection. negative: Tonsillar erythema, Tonsillar exudate - Neck Neck exam: Normal inspection, Full ROM. negative: Tenderness - Respiratory Respiratory exam: Normal lung sounds bilaterally. negative: Respiratory distress - Cardiovascular Cardiovascular Exam: Normal rhythm, Normal heart sounds, Tachycardia - GI/Abdominal GI/Abdominal exam: Soft, Normal bowel sounds, Tenderness - Rectal Rectal exam: Deferred - exam: Normal external exam, Vaginal bleeding (light) - Extremities Extremities exam: Normal inspection, Full ROM, Normal capillary refill. negativ e: Tenderness - Back Back exam: Reports: Normal inspection, Full ROM. Denies: Muscle spasm, Rash noted, Tenderness - Neurological Neurological exam: Alert, CN II-XII intact, Normal gait, Oriented X3 - Psychiatric Psychiatric exam: Normal affect, Normal mood - Skin Skin exam: Dry, Intact, Normal color, Warm Course Vital Signs 03/06/19 09:11 Temperature 98.1 F Pulse Rate 115 H Respiratory 20 Rate Blood Pressure 145/103 Pulse Ox 97 Medical Decision Making - Lab Data Result diagrams: 03/06/19 09:45 03/06/19 09:45 Lab Results 03/06/19 03/06/19 Range/Units 09:45 09:45 WBC 7.5 (4.2-12.2) K/uL RBC 4.62 (3.80-5.40) M/uL Hgb 13.5 (11.6-16.0) gm/dl Hct 39.9 (35.0-47.0) % MCV 86.4 (81-97) fl MCH 29.2 (27-33) pg MCHC 33.8 (32-36) g/dl RDW 13.5 (11.5-14.5) % Plt Count 295 (130-400) K/uL MPV 9.7 (7.4-10.4) fl Gran % 57.1 (47-80) % Lymphocytes % 35.9 (16-45) % Monocytes % 6.2 (0-9) % Eosinophils % 0.5 (0-6) % Basophils % 0.3 (0-6) % Absolute Neutrophils 4.30 Sodium 139 (136-145) mmol/L Potassium 3.0 L (3.4-4.5) mmol/L Chloride 101 (98-107) mmol/L Carbon Dioxide 26.0 (22-29) mmol/L Anion Gap 12.0 (7-16) BUN 6 (6-20) mg/dL Creatinine 0.8 (0.5-0.9) mg/dL Estimated GFR > 60 mL/min Random Glucose 96 (74-109) mg/dL Calcium 9.5 (8.6-10.0) mg/dL Disposition Disposition: Discharge Clinical Impression: Dysfunctional uterine hemorrhage, Hypokalemia, infection, trichomonal, Dysmenorrhea Disposition: Home, Self-Care Condition: (1) Good Instructions: Dysmenorrhea (ED), Dysfunctional Uterine Bleeding (ED), Trichomoniasis (ED), Hypokalemia (ED) Additional Instructions: follow up with [facility] doctor. return sooner if worse. rest.. use condoms Forms: Patient Portal Access Quality - Quality Measures Quality Measures: N/A - Blood Pressure Screening Does Patient Have Any of the Following: No Blood Pressure Classification: Hypertensive Reading Systolic Measurement: 145 Diastolic Measurement: 103 Screening for High Blood Pressure: < First Hypertensive BP, F/U Documented > [G8950] First Hypertensive Follow-up Interventions: Follow-up with rescreen GT 1 day and LT 4 weeks.
[2019-03-06 10:39] LABS: URINE APPEARANCE CLEAR; URINE BILIRUBIN NEGATIVE (NEGATIVE); URINE BLOOD LARGE (NEGATIVE); URINE COLOR YELLOW; URINE GLUCOSE (UA) NEGATIVE (NEGATIVE); URINE KETONE NEGATIVE (NEGATIVE); URINE NITRITE NEGATIVE (NEGATIVE); URINE UROBILINOGEN 0.2 E.U./dL (0.20 - 1.00)
[2019-03-06 10:52] LABS: URINE LEUKOCYTE ESTERASE TRACE (NEGATIVE); URINE RBC >50 (NONE SEEN)
[2019-03-06 10:53] LABS: URINE TRICHOMONAS MODERATE
[2019-03-06 11:01] LABS: HCG,QUALITATIVE URINE NEGATIVE (NEGATIVE)
[2019-03-06] MEDS ORDERED: KETOROLAC 30 MG/ML VIAL IVP ONE (11:26)
[2019-03-06] MEDS ORDERED: METRONIDAZOLE 250 MG TABLET PO ONE (11:31)
[2019-03-06] MEDS ORDERED: ONDANSETRON HCL IV 4 MG/2 ML VIAL IVP ONE (11:36)
== END 2019-03-06 12:00 | disposition home or self-care (01) ==
LOC: ER 09:06
DX: N93.8 Other specified abnormal uterine and vaginal bleeding (principal); E87.6 Hypokalemia; A59.00 Urogenital trichomoniasis, unspecified; N94.6 Dysmenorrhea, unspecified; F17.210 Nicotine dependence, cigarettes, uncomplicated
CPT/HCPCS: 80048; 81001; 81025; 85025; 96374; 96375; 99285; J1885; J2405; J7030